=== PATIENT | female | born 1980 | race Caucasian/White ===

== ENCOUNTER 2017-09-03 13:50 | Emergency (ER) | payer SELFPAY ==
[~2017-09-03] VITALS: Ht 170.2 cm; Wt 99.8 kg
[2017-09-03 14:32] LABS: Basophils # (auto) 0.1 uL; Basophils % (auto) 0.6 % (0.0-2.0); Eosinophils # (auto) 0 uL; Hematocrit 42.9 % (36.0-46.0); Hemoglobin 14.2 g/dL (12.2-16.2); Lymphocytes # (auto) 1.3 uL; Lymphocytes % (auto) 8.7 % (10.0-50.0); Mean Corpuscular Volume 81.8 fL (80.0-100.0); Monocytes # (auto) 0.2 uL; Monocytes % (auto) 1.6 % (0.0-12.0); Neutrophils % (auto) 89.1 % (37.0-80.0); Platelet Count (auto) 293 10^3/uL (140-450); Red Blood Cells 5.25 10^6/uL (4.0-5.20); Red Cell Distribution Width 15.1 % (11.8-14.3); White Blood Cell 14.5 10^3/uL (4.4-10.8)
[2017-09-03 14:50] LABS: Calcium 8.8 mg/dL (8.5-10.1); Potassium 3.1 mmol/L (3.5-5.1); Total Protein 8.4 g/dL (6.4-8.2)
[2017-09-03 15:22] LABS: Urine Bacteria FEW /hpf (None Seen); Urine Blood 2+ /uL (Negative); Urine Mucus FEW (None Seen); Urine Specific Gravity 1.021 (1.001-1.035); Urine WBC 16 /hpf (0 - 5)
[2017-09-03] MEDS ORDERED: PANTOPRAZOLE 40 MG/10 ML VIAL IV STA (15:44)
[2017-09-03] MEDS ORDERED: SODIUM CHLORIDE 0.9% 1,000 ML IVB ONE (15:44)
[2017-09-03] MEDS ORDERED: HYDROmorphone HCL 2 MG/ML VL IV ONE (15:45)
[2017-09-03] MEDS ORDERED: ONDANSETRON HCL 4 MG/2 ML VIAL IV ONE (15:45)
[2017-09-03 17:13] VITALS: BP 132/87
== END 2017-09-03 17:47 | disposition home or self-care (01) ==
LOC: ER 13:50
DX: K21.9 Gastro-esophageal reflux disease without esophagitis (principal); N39.0 Urinary tract infection, site not specified; I10 Essential (primary) hypertension
CPT/HCPCS: 36415; 76705; 80053; 81001; 81025; 82150; 83690; 85025; 94761; 96361; 96374; 96375; 99285; C9113; J1170; J2405

== ENCOUNTER 2018-01-24 07:33 | Inpatient (IN) | payer MEDICAID ==
[~2018-01-24] VITALS: Ht 170.2 cm; Wt 103.0 kg
[2018-01-24 08:16] LABS: Basophils # (auto) 0.1 uL; Basophils % (auto) 0.9 % (0.0-2.0); Eosinophils # (auto) 0 uL; Eosinophils % (auto) 0.3 % (0.0-7.0); Hemoglobin 13.5 g/dL (12.2-16.2); Mean Corpuscular Hemoglobin 27.5 pg (28.0-32.0); Mean Corpuscular Hgb Conc. 33.6 g/dL (32.0-36.0); Mean Corpuscular Volume 81.6 fL (80.0-100.0); Monocytes # (auto) 0.5 uL; Monocytes % (auto) 5.1 % (0.0-12.0); Neutrophils # (auto) 6.9 uL; Neutrophils % (auto) 72.7 % (37.0-80.0); Platelet Count (auto) 260 10^3/uL (140-450); Red Cell Distribution Width 14.3 % (11.8-14.3); White Blood Cell 9.5 10^3/uL (4.4-10.8)
[2018-01-24] MEDS ORDERED: MORPHINE SULFATE 4 MG/ML SYR/VIAL IV ONE (08:30)
[2018-01-24] MEDS ORDERED: ALUM & MAG HYDROX-SIMETH LIQ(MAALOX) 30 ML PO ONE (08:30)
[2018-01-24] MEDS ORDERED: ONDANSETRON HCL 4 MG/2 ML VIAL IV ONE (08:30)
[2018-01-24] MEDS ORDERED: LIDOCAINE VISCOUS 2% 15ML UD PO ONE (08:30)
[2018-01-24] MEDS ORDERED: DONNATAL 5ml ORAL Elix (BELLADONNA ALK-PHENOBARB) PO ONE (08:30)
[2018-01-24 08:36] LABS: Albumin 3.8 g/dL (3.4-5.0); BUN/Creatinine Ratio 21.1; Bilirubin, Total 1.5 mg/dL (0.2-1.0); Calcium 8.4 mg/dL (8.5-10.1); Total Protein 7.6 g/dL (6.4-8.2)
[2018-01-24 08:43] LABS: Potassium 2.8 mmol/L (3.5-5.1)
[2018-01-24] MEDS ORDERED: POTASSIUM CHL 10% (20 MEQ/15ML) 15ml ORAL SOLN PO ONE (11:15)
[2018-01-24] MEDS ORDERED: NALBUPHINE HCL 10 MG/1ml INJECTION IV ONE (11:30)
[2018-01-24 13:26] LABS: Urine Bacteria FEW /hpf (None Seen); Urine Blood TRACE /uL (Negative); Urine Mucus FEW (None Seen); Urine Specific Gravity 1.014 (1.001-1.035); Urine WBC 2 /hpf (0 - 5)
[2018-01-24] MEDS ORDERED: PROMETHAZINE HCL 25 MG/ML 1ML IV ONE (14:30)
[2018-01-24] MEDS ORDERED: SODIUM CHLORIDE 0.9% 1,000 ML IV SCH (14:37)
[2018-01-24] MEDS ORDERED: FAMOTIDINE (10MG/ML) 2ML VL IV SCH (14:45)
[2018-01-24] MEDS ORDERED: MORPHINE SULFATE 4 MG/ML SYR/VIAL IV PRN (14:45)
[2018-01-24] MEDS ORDERED: ACETAMINOPHEN 500 MG TAB PO PRN (14:45)
[2018-01-24] MEDS ORDERED: HYDROcodone-ACET 5/325MG TAB PO PRN (14:45)
[2018-01-24] MEDS ORDERED: LORazepam 0.5 MG TAB PO PRN (14:45)
[2018-01-24] MEDS ORDERED: cefTRIAXone 1GM/10ml IVPUSH 10 ML IV ONE (14:45)
[2018-01-24] MEDS ORDERED: NITROGLYCERIN 0.4 MG SL TAB SL PRN (14:45)
[2018-01-24 15:03] LABS: Amylase 28 U/L (25-115); Lipase 82 U/L (73-393)
[2018-01-24] MEDS: SOD CHL 0.9%/ KCL 40MEQ 1,000 ML IV SCH (16:29)
[2018-01-24 17:10] VITALS: BP 132/92
[2018-01-24 17:12] VITALS: BP 132/92
[2018-01-24] MEDS: MORPHINE SULFATE 4 MG/ML SYR/VIAL IV PRN ×2 (17:26→22:11)
[2018-01-24] MEDS: PROMETHAZINE HCL 25 MG/ML 1ML IV PRN ×2 (17:26→22:12)
[2018-01-24] MEDS ORDERED: metroNIDAZOLE 500MG/100ML 100 ML IV SCH (18:00)
[2018-01-24 20:00] VITALS: BP 134/82
[2018-01-24] MEDS: PANTOPRAZOLE 40 MG/10 ML VIAL IV SCH (22:11)
[2018-01-24] MEDS: TEMAZEPAM 15 MG CAP PO PRN (23:01)
[2018-01-24 23:12] VITALS: BP 134/82
[2018-01-25] MEDS: SOD CHL 0.9%/ KCL 40MEQ 1,000 ML IV SCH ×3 (02:27→23:26)
[2018-01-25] MEDS: PROMETHAZINE HCL 25 MG/ML 1ML IV PRN ×3 (05:06→14:58)
[2018-01-25] MEDS: MORPHINE SULFATE 4 MG/ML SYR/VIAL IV PRN ×4 (05:07→20:14)
[2018-01-25 05:22] VITALS: BP 137/80
[2018-01-25 05:54] LABS: Basophils # (auto) 0 uL; Basophils % (auto) 0.4 % (0.0-2.0); Eosinophils # (auto) 0 uL; Eosinophils % (auto) 0.5 % (0.0-7.0); Hematocrit 35.4 % (36.0-46.0); Hemoglobin 11.5 g/dL (12.2-16.2); Lymphocytes # (auto) 2.5 uL; Mean Corpuscular Hgb Conc. 32.4 g/dL (32.0-36.0); Mean Corpuscular Volume 83.5 fL (80.0-100.0); Monocytes # (auto) 0.5 uL; Monocytes % (auto) 6.1 % (0.0-12.0); Neutrophils # (auto) 4.5 uL; Nucleated Red Blood Cells % 0.1 %; Platelet Count (auto) 205 10^3/uL (140-450); Red Blood Cells 4.24 10^6/uL (4.0-5.20); Red Cell Distribution Width 14.5 % (11.8-14.3); White Blood Cell 7.5 10^3/uL (4.4-10.8)
[2018-01-25 06:09] LABS: Potassium 3.4 mmol/L (3.5-5.1)
[2018-01-25 06:17] LABS: Albumin 3.1 g/dL (3.4-5.0); BUN/Creatinine Ratio 18.1
[2018-01-25 06:18] LABS: Bilirubin, Total 1.1 mg/dL (0.2-1.0); Total Protein 6.2 g/dL (6.4-8.2)
[2018-01-25 06:51] LABS: Cholesterol 116 mg/dL (< 200); HDL Cholesterol 47 mg/dL (40-59); LDL Cholesterol 70 mg/dL (< 100); Triglycerides 76 mg/dL (< 150)
[2018-01-25 09:00] VITALS: BP 128/81
[2018-01-25] MEDS ORDERED: cefTRIAXone 1GM/10ml IVPUSH 10 ML IV SCH (09:00)
[2018-01-25] MEDS: PANTOPRAZOLE 40 MG/10 ML VIAL IV SCH ×2 (09:32→23:26)
[2018-01-25 13:00] VITALS: BP 141/82
[2018-01-25 17:00] VITALS: BP 135/96
[2018-01-25 21:54] VITALS: BP 128/89
[2018-01-26] MEDS: MORPHINE SULFATE 4 MG/ML SYR/VIAL IV PRN ×3 (04:16→19:14)
[2018-01-26 04:21] VITALS: BP 137/87
[2018-01-26 08:13] VITALS: BP 164/102
[2018-01-26] MEDS: PROMETHAZINE HCL 25 MG/ML 1ML IV PRN ×2 (08:41→19:14)
[2018-01-26] MEDS: SOD CHL 0.9%/ KCL 40MEQ 1,000 ML IV SCH ×2 (08:43→18:00)
[2018-01-26] MEDS: PANTOPRAZOLE 40 MG/10 ML VIAL IV SCH ×2 (10:46→23:09)
[2018-01-26 10:49] LABS: Basophils # (auto) 0.1 uL; Hemoglobin 12.2 g/dL (12.2-16.2); Lymphocytes # (auto) 2.5 uL; Mean Corpuscular Hemoglobin 26.9 pg (28.0-32.0)
[2018-01-26 10:51] LABS: Basophils % (auto) 0.8 % (0.0-2.0); Eosinophils # (auto) 0.2 uL; Eosinophils % (auto) 1.9 % (0.0-7.0); Hematocrit 37.2 % (36.0-46.0); Lymphocytes % (auto) 31.3 % (10.0-50.0); Mean Corpuscular Hgb Conc. 32.7 g/dL (32.0-36.0); Mean Corpuscular Volume 82.1 fL (80.0-100.0); Monocytes # (auto) 0.4 uL; Monocytes % (auto) 5.5 % (0.0-12.0); Neutrophils # (auto) 4.9 uL; Neutrophils % (auto) 60.5 % (37.0-80.0); Nucleated Red Blood Cells % 0.1 %; Platelet Count (auto) 214 10^3/uL (140-450); Red Blood Cells 4.53 10^6/uL (4.0-5.20); Red Cell Distribution Width 14.4 % (11.8-14.3)
[2018-01-26 11:12] LABS: BUN/Creatinine Ratio 11.6; Calcium 7.8 mg/dL (8.5-10.1); Potassium 3.8 mmol/L (3.5-5.1)
[2018-01-26 12:24] VITALS: BP 134/85
[2018-01-26 17:27] VITALS: BP 143/98
[2018-01-26 21:48] VITALS: BP 147/111
[2018-01-27] MEDS: MORPHINE SULFATE 4 MG/ML SYR/VIAL IV PRN ×3 (01:17→20:11)
[2018-01-27] MEDS: SOD CHL 0.9%/ KCL 40MEQ 1,000 ML IV SCH ×2 (04:00→16:30)
[2018-01-27 05:00] VITALS: BP 147/98
[2018-01-27 06:48] LABS: Basophils # (auto) 0 uL; Basophils % (auto) 0.4 % (0.0-2.0); Eosinophils # (auto) 0.1 uL; Eosinophils % (auto) 1.7 % (0.0-7.0); Hematocrit 36.4 % (36.0-46.0); Hemoglobin 12.1 g/dL (12.2-16.2); Lymphocytes # (auto) 2.3 uL; Lymphocytes % (auto) 28.2 % (10.0-50.0); Mean Corpuscular Hemoglobin 27.5 pg (28.0-32.0); Mean Corpuscular Hgb Conc. 33.2 g/dL (32.0-36.0); Mean Corpuscular Volume 82.8 fL (80.0-100.0); Monocytes # (auto) 0.5 uL; Monocytes % (auto) 6.2 % (0.0-12.0); Neutrophils # (auto) 5.3 uL; Neutrophils % (auto) 63.5 % (37.0-80.0); Nucleated Red Blood Cells % 0.1 %; Platelet Count (auto) 220 10^3/uL (140-450); Red Blood Cells 4.39 10^6/uL (4.0-5.20); Red Cell Distribution Width 14.5 % (11.8-14.3); White Blood Cell 8.3 10^3/uL (4.4-10.8)
[2018-01-27 06:50] LABS: INR 1.04 (0.9-1.15); Partial Thromboplastin Time 27.1 sec (22.64-33.71); Prothrombin Time 11.3 sec (9.37-12.3)
[2018-01-27 06:56] LABS: Potassium 3.8 mmol/L (3.5-5.1)
[2018-01-27 07:05] LABS: BUN/Creatinine Ratio 16.9; Calcium 8.4 mg/dL (8.5-10.1)
[2018-01-27] MEDS ORDERED: LIDOCAINE VISCOUS 2% 15ML UD ONE (08:24)
[2018-01-27] MEDS ORDERED: diphenhdrAMINE HCL 50 MG/1 ML VL ONE (08:25)
[2018-01-27 08:46] VITALS: BP 147/98
[2018-01-27] MEDS: MIDAZOLAM HCL 5 MG/ML-1ML VIAL ONE ×2 (11:50→11:54)
[2018-01-27] MEDS: fentaNYL CITRATE 100 MCG/2 ML VL ONE ×2 (11:50→11:54)
[2018-01-27] MEDS: PANTOPRAZOLE 40 MG TAB PO SCH ×2 (17:13→21:34)
[2018-01-27 17:14] VITALS: BP 127/86
[2018-01-27 22:00] VITALS: BP 135/87
[2018-01-27] MEDS: TEMAZEPAM 15 MG CAP PO PRN (23:38)
[2018-01-28] MEDS: SOD CHL 0.9%/ KCL 40MEQ 1,000 ML IV SCH ×2 (01:34→14:31)
[2018-01-28 05:00] VITALS: BP 122/90
[2018-01-28 07:15] LABS: Basophils # (auto) 0 uL; Basophils % (auto) 0.5 % (0.0-2.0); Eosinophils # (auto) 0.2 uL; Eosinophils % (auto) 3.3 % (0.0-7.0); Hematocrit 34.9 % (36.0-46.0); Hemoglobin 11.3 g/dL (12.2-16.2); Lymphocytes # (auto) 2.1 uL; Lymphocytes % (auto) 30.5 % (10.0-50.0); Mean Corpuscular Hemoglobin 27.2 pg (28.0-32.0); Mean Corpuscular Hgb Conc. 32.5 g/dL (32.0-36.0); Mean Corpuscular Volume 83.6 fL (80.0-100.0); Monocytes # (auto) 0.4 uL; Monocytes % (auto) 5.5 % (0.0-12.0); Neutrophils # (auto) 4.1 uL; Neutrophils % (auto) 60.2 % (37.0-80.0); Nucleated Red Blood Cells % 0.1 %; Platelet Count (auto) 204 10^3/uL (140-450); Red Blood Cells 4.17 10^6/uL (4.0-5.20); Red Cell Distribution Width 14.8 % (11.8-14.3); White Blood Cell 6.9 10^3/uL (4.4-10.8)
[2018-01-28 07:22] LABS: Calcium 8.2 mg/dL (8.5-10.1); Potassium 3.9 mmol/L (3.5-5.1)
[2018-01-28 07:28] LABS: BUN/Creatinine Ratio 15.7
[2018-01-28 09:01] VITALS: BP 159/97
[2018-01-28] MEDS: PANTOPRAZOLE 40 MG TAB PO SCH (09:05)
[2018-01-28] MEDS: MORPHINE SULFATE 4 MG/ML SYR/VIAL IV PRN ×2 (09:05→14:00)
[2018-01-28 13:13] VITALS: BP 126/89
[2018-01-28 16:32] VITALS: BP 134/94
== END 2018-01-28 18:00 | disposition home or self-care (01) | DRG 241 ==
LOC: ER 07:33 → TELE 07:34 → TELE-EAST 17:03 → TELE-CENTR 19:25
PROVIDERS: ADMIT Internal Medicine; ATTEND Internal Medicine
PROC: 0DB78ZX Excision of Stomach, Pylorus, Via Natural or Artificial Opening Endoscopic, Diagnostic (ICD-10-PCS; principal; 2018-01-27 11:48)
DX: K29.70 Gastritis, unspecified, without bleeding (principal); K92.0 Hematemesis; K29.80 Duodenitis without bleeding; I10 Essential (primary) hypertension; E87.6 Hypokalemia; E66.9 Obesity, unspecified; G89.29 Other chronic pain; M54.9 Dorsalgia, unspecified; K21.9 Gastro-esophageal reflux disease without esophagitis; K82.9 Disease of gallbladder, unspecified; R73.9 Hyperglycemia, unspecified; Z68.35 Body mass index [BMI] 35.0-35.9, adult; Z87.891 Personal history of nicotine dependence; Z82.49 Family history of ischemic heart disease and other diseases of the circulatory system
CPT/HCPCS: 36415; 43239; 74176; 76705; 80048; 80053; 80061; 81001; 82150; 83690; 84484; 84702; 85025; 85610; 85730; 87086; 93005; 96361; 96374; 96375; C9113; J2250; J2405; J3490